=== PATIENT | male | born 1955 | race Caucasian/White ===

== ENCOUNTER 2020-04-05 12:03 | Day surgery (SDC) | payer MEDICARE ==
[2020-04-05] MEDS ORDERED: LACTATED RINGERS 1,000 ML IV ONE (12:04)
[2020-04-05] MEDS ORDERED: MIDAZOLAM 2 MG/2 ML VIAL IVP ONE (13:09)
[2020-04-05] MEDS ORDERED: fentaNYL 250 MCG/5 ML VIAL IVP ONE (13:09)
[2020-04-05 14:54] VITALS: BP 136/72
--- NOTE | 2020-04-08 03:15 | PROCEDURE REPORT ---
DATE OF SERVICE: 04/05/2020 Physician: Fabrice Chacon MD PREOPERATIVE DIAGNOSIS: Screening colonoscopy. POSTOPERATIVE DIAGNOSES 1. Screening colonoscopy. 2. Mild diverticulosis, sigmoid colon. 3. Possible 2 polyps, sigmoid colon. PROCEDURES PERFORMED 1. Screening colonoscopy. 2. Cold jumbo forceps biopsy, sigmoid, possible polyp. 3. Hot snare biopsy, possible sigmoid colon polyp. SURGEON: Fabrice Chacon MD DATAWAREHOUSE DEVELOPER: None. ANESTHESIA: IV sedation, 5 mg of Versed and 150 mcg of fentanyl. SPECIMENS: Two sigmoid colon biopsies, sent for pathology, permanent. FINDINGS 1. As above, possible small 2 mm, flat or sessile polyp of the sigmoid colon. 2. A small pedunculated polyp, sigmoid colon. 3. Very mild, small diverticulosis of the sigmoid colon. INDICATIONS FOR PROCEDURE: The patient is a healthy, active 64-year-old gentleman who is due for a screening colonoscopy. He had a prior colonoscopy several years ago, which was unremarkable. He presents for screening. Risks discussed, alternatives discussed. All questions answered and consent obtained. DETAILS OF PROCEDURE: The patient was properly identified, brought to the operating room, and placed in the left lateral decubitus position. He was properly identified. Sedation was given. A digital rectal examination was normal. The scope was carefully advanced to the cecum. The cecum was identified by ileocecal valve plus appendix. The scope was slowly drawn. He had very mild small diverticulosis of the sigmoid colon. In the mid sigmoid colon, there appeared to be a possible small flat or sessile 2 mm polyp. This was removed with jumbo cold forceps. In the distal sigmoid colon, there appeared to be a small pedunculated polyp. This was removed with a hot snare. The scope was further withdrawn. Retroflex view of the rectum was normal. The scope was then completely withdrawn. He tolerated the procedure well. TD: 04/07/2020 21:17 [facility]
== END 2020-04-05 12:04 | disposition home or self-care (01) ==
LOC: SDS 12:03
PROVIDERS: ATTEND Surgery
PROC: 0DBN8ZZ Excision of Sigmoid Colon, Via Natural or Artificial Opening Endoscopic (ICD-10-PCS; 2020-04-05)
PROC: 0DBN8ZZ Excision of Sigmoid Colon, Via Natural or Artificial Opening Endoscopic (ICD-10-PCS; principal; 2020-04-05 13:00)
DX: Z12.11 Encounter for screening for malignant neoplasm of colon (principal); K57.30 Diverticulosis of large intestine without perforation or abscess without bleeding; D12.5 Benign neoplasm of sigmoid colon; I10 Essential (primary) hypertension; K21.9 Gastro-esophageal reflux disease without esophagitis; F17.210 Nicotine dependence, cigarettes, uncomplicated
CPT/HCPCS: 45380; 45385; J3010; J7120